=== PATIENT | female | born 1960 | race Caucasian/White ===

== ENCOUNTER 2024-04-22 21:05 | Emergency (ER) | payer MEDICAID ==
--- NOTE | 2024-04-22 21:52 | ED ---
Abdominal Pain HPI - General Chief Complaint: Abdominal Pain Stated Complaint: Flank Pain, Abdominal Pain Time Seen by Provider: 04/22/24 21:20 Source: patient, family, RN notes reviewed Limitations: no limitations - History of Present Illness Initial Comments: This is a 63-year-old female presented to the emergency department chief complaint of right-sided flank pain that started on 04/20/2024. Patient states that the pain started while she was sitting in her chair at home. Patient denies any known traumas or injuries to her back. Patient was evaluated at outside emergency department yesterday where she underwent CT imaging and laboratory studies and was discharged home with muscle relaxer. Patient states that flank pain has persisted. She denies hematuria, dysuria, increase in urinary frequency or urgency, radiation of pain. She denies chest pain, shortness of breath, difficulty breathing. She denies bowel changes such as hematochezia or dark or tarry stools. Patient states that she has a history of kidney stones over 20 years ago. - Related Data Allergies Allergy/AdvReac Type Severity Reaction Status Date / Time irinotecan [From Camptosar] AdvReac Unknown Verified 04/22/24 21:13 latex AdvReac Rash/Hives Verified 04/22/24 21:13 metronidazole [From Flagyl] AdvReac Rash/Hives Verified 04/22/24 21:13 Review of Systems ROS Statement: Those systems with pertinent positive or pertinent negative responses have been documented in the HPI. ROS Other: All systems not noted in ROS Statement are negative. Past Medical History Past Medical History: Thyroid Disorder Additional Past Medical History / Comment(s): [place] dx, PVC's, UTI, Gallstones with sludge, cyst on kidney, kidney stones. History of Any Multi-Drug Resistant Organisms: C-DIFF Past Surgical History: Section Additional Past Surgical History / Comment(s): uterine surg r/t post menopause bleeding , loop moniot 2-2023, Past Psychological History: PTSD Smoking Status: Never smoker Past Alcohol Use History: Occasional Past Drug Use History: None Reported General Exam Limitations: no limitations General appearance: alert, in no apparent distress Eye exam: Present: normal appearance, PERRL, EOMI. Absent: scleral icterus, conjunctival injection, periorbital swelling Neck exam: Present: normal inspection. Absent: tenderness, meningismus, lymphadenopathy Respiratory exam: Present: normal lung sounds bilaterally. Absent: respiratory distress, wheezes, rales, rhonchi, stridor Cardiovascular Exam: Present: regular rate, normal rhythm, normal heart sounds. Absent: systolic murmur, diastolic murmur, rubs, gallop, clicks GI/Abdominal exam: Present: soft, normal bowel sounds. Absent: distended, tenderness, guarding, rebound, rigid Extremities exam: Present: normal inspection, full ROM, normal capillary refill. Absent: tenderness, pedal edema, joint swelling, calf tenderness Back exam: Present: normal inspection, CVA tenderness (R). Absent: CVA tenderness (L) Skin exam: Present: warm, dry, intact, normal color. Absent: rash Course Vital Signs 04/22/24 04/23/24 21:14 01:31 EDT Temperature 97.5 F L 97.9 F Pulse Rate 74 64 Respiratory 23 17 Rate Blood Pressure 131/82 92/57 O2 Sat by Pulse 96 95 Oximetry Medical Decision Making - Medical Decision Making Was pt. sent in by a medical professional or institution (Dr. PA, CARE GIVER, urgent care, hospital, or fpc...) When possible be specific @ -No Did you speak to anyone other than the patient for history (EMS, parent, family, police, friend...)? What history was obtained from this source @ -No Did you review nursing and triage notes (agree or disagree)? Why? @ -I reviewed and agree with nursing and triage notes Were old charts reviewed (outside hosp., previous admission, EMS record, old EKG, old radiological studies, urgent care reports/EKG's, fpc records)? Report findings @ -No old charts were reviewed Differential Diagnosis (chest pain, altered mental status, abdominal pain women, abdominal pain men, vaginal bleeding, weakness, fever, dyspnea, syncope, headache, dizziness, GI bleed, back pain, seizure, CVA, palpatations, mental health, musculoskeletal)? @ -Differential Back Pain: Strain, zoster, cauda equina syndrome, epidural abscess, vertebral osteomyelitis, discitis, fracture, subluxation, disc herniation, DJD, spinal stenosis, dissection, AAA, pancreatitis, peptic ulcer disease, pyelonephritis, kidney stone, this is not meant to be an all-inclusive list. EKG interpreted by me (3pts min.). @ -none X-rays interpreted by me (1pt min.). @ -None done CT interpreted by me (1pt min.). @ -CT of the abdomen and pelvis with IV contrast reveals symmetric excretion bilaterally without hydronephrosis gallstones without evidence for acute cholecystitis no bowel obstruction moderate constipation U/S interpreted by me (1pt. min.). @ -Ultrasound of the gallbladder reveals gallstones with no evidence for acute cholecystitis What testing was considered but not performed or refused? (CT, X-rays, U/S, labs)? Why? @ -None What meds were considered but not given or refused? Why? @ -None Did you discuss the management of the patient with other professionals (professionals i.e. , PA, CARE GIVER, lab, RT, psych nurse, renal social worker, offbearer sewer pipe, teacher, small business banking officer, case loader operator)? Give summary @ -No Was smoking cessation discussed for >3mins.? @ -No Was critical care preformed (if so, how long)? @ -No Were there social determinants of health that impacted care today? How? (Homelessness, low income, unemployed, alcoholism, drug addiction, transportation, low edu. Level, literacy, decrease access to med. care, senior care, rehab)? @ -No Was there de-escalation of care discussed even if they declined (Discuss DNR or withdrawal of care, Hospice)? DNR status @ -No What co-morbidities impacted this encounter? (DM, HTN, Smoking, COPD, CAD, Cancer, CVA, ARF, Chemo, Hep., AIDS, mental health diagnosis, sleep apnea, morbid obesity)? @ -None Was patient admitted / discharged? Hospital course, mention meds given and route, prescriptions, significant lab abnormalities, going to OR and other pertinent info. @ -Discharge. 63-year-old female with right sided flank pain. On my initial evaluation of the patient is noted to be laying on her left side with a ice pack over her right flank. Her vital signs are stable. Patient states that pain is not exacerbated on palpation however is worse with movement. Will be provided with dose of Toradol and will be evaluated for flank pain including laboratory studies and CT imaging. She is agree with this plan. Laboratory studies including CBC, CMP, pancreatic enzymes, and urinalysis within normal limits. CT scan unremarkable for acute process discerning right flank pain. Discussed with patient at bedside offer ultrasound of the gallbladder as pain may be referred from gallbladder. Patient did agree with undergoing ultrasound. Ultrasound negative for acute process, remarkable for gallstones. Patient is provided a prescription for Toradol to take as needed outpatient. Additionally, she is provided with a referral to general surgeon for further evaluation of flank pain that may be referred secondary to gallbladder/gallstones. All questions have been answered at bedside and strict return parameters have been discussed with the patient she is verbalized understanding. Case discussed with my attending Dr. Walden Undiagnosed new problem with uncertain prognosis? @ -No Drug Therapy requiring intensive monitoring for toxicity (Heparin, Nitro, Insulin, Cardizem)? @ -No Were any procedures done? @ -No Diagnosis/symptom? @ -Flank pain Acute, or Chronic, or Acute on Chronic? @ -acute Uncomplicated (without systemic symptoms) or Complicated (systemic symptoms)? @ -Uncomplicated Side effects of treatment? @ -No Exacerbation, Progression, or Severe Exacerbation? @ -No Poses a threat to life or bodily function? How? (Chest pain, USA, CA, pneumonia, PE, COPD, DKA, ARF, appy, cholecystitis, CVA, Diverticulitis, Homicidal, Suicidal, threat to staff... and all critical care pts) @ -No - Lab Data Result diagrams: 04/22/24 22:09 04/22/24 22:09 Lab Results 04/22/24 04/22/24 04/22/24 Range/Units 22:04 22:09 22:09 WBC 8.8 (3.8-10.6) k/uL RBC 4.35 (3.80-5.40) m/uL Hgb 13.3 (11.4-16.0) gm/dL Hct 40.8 (34.0-46.0) % MCV 93.8 (80.0-100.0) fL MCH 30.6 (25.0-35.0) pg MCHC 32.6 (31.0-37.0) g/dL RDW 12.1 (11.5-15.5) % Plt Count 244 (150-450) k/uL MPV 6.4 Neutrophils % 61 % Lymphocytes % 30 % Monocytes % 6 % Eosinophils % 1 % Basophils % 0 % Neutrophils # 5.3 (1.3-7.7) k/uL Lymphocytes # 2.6 (1.0-4.8) k/uL Monocytes # 0.5 (0-1.0) k/uL Eosinophils # 0.1 (0-0.7) k/uL Basophils # 0.0 (0-0.2) k/uL Sodium 139 (137-145) mmol/L Potassium 4.3 (3.5-5.1) mmol/L Chloride 104 (98-107) mmol/L Carbon Dioxide 29 (22-30) mmol/L Anion Gap 6 mmol/L BUN 9 (7-17) mg/dL Creatinine 0.49 L (0.52-1.04) mg/dL Est GFR (CKD-EPI)AfAm >90 (>60 ml/min/1.73 sqM) Est GFR (CKD-EPI)NonAf >90 (>60 ml/min/1.73 sqM) Glucose 98 (74-99) mg/dL Calcium 9.2 (8.4-10.2) mg/dL Total Bilirubin 1.1 (0.2-1.3) mg/dL AST 29 (14-36) U/L ALT 21 (4-34) U/L Alkaline Phosphatase 80 (38-126) U/L Total Protein 7.1 (6.3-8.2) g/dL Albumin 4.5 (3.5-5.0) g/dL Amylase 61 (30-110) U/L Lipase 40 (23-300) U/L Urine Color Colorless Urine Appearance Clear (Clear) Urine pH 5.5 (5.0-8.0) Ur Specific [place] 1.002 (1.001-1.035) Urine Protein Negative (Negative) Urine Glucose (UA) Negative (Negative) Urine Ketones Negative (Negative) Urine Blood Trace H (Negative) Urine Nitrite Negative (Negative) Urine Bilirubin Negative (Negative) Urine Urobilinogen <2.0 (<2.0) mg/dL Ur Leukocyte Esterase Negative (Negative) Urine RBC <1 (0-5) /hpf Ur Squamous Epith Cells <1 (0-4) /hpf Disposition Clinical Impression: Flank pain, Biliary colic Disposition: HOME SELF-CARE Condition: Good Instructions (If sedation given, give patient instructions): Biliary Colic (ED) Additional Instructions: Please return to the Emergency Department if symptoms worsen or any other km rns. Recommend that you follow-up with the provided general surgeon for further evaluation. Continue to take medication as needed for pain. Is patient prescribed a controlled substance at d/c from ED?: No Referrals: Nonstaff,Physician [Primary Care Provider] - 1-2 days Ramiro Galaviz DO [Medical Doctor] - 1-2 days Time of Disposition: 01:07
[2024-04-22] MEDS: KETOROLAC 15 MG/ML 1 ML VIAL IVP STA (22:05)
[2024-04-22 22:22] LABS: Basophils % (A) 0 %; Eosinophils # (A) 0.1 k/uL (0-0.7); Eosinophils % (A) 1 %; HCT 40.8 % (34.0-46.0); HGB 13.3 gm/dL (11.4-16.0); Lymphocytes # (A) 2.6 k/uL (1.0-4.8); Lymphocytes % (A) 30 %; MCH 30.6 pg (25.0-35.0); MCHC 32.6 g/dL (31.0-37.0); MCV 93.8 fL (80.0-100.0); Mean Platelet Volume 6.4; Monocytes # (A) 0.5 k/uL (0-1.0); Monocytes % (A) 6 %; Neutrophils # (A) 5.3 k/uL (1.3-7.7); Neutrophils % (A) 61 %; Platelet Count 244 k/uL (150-450); RBC 4.35 m/uL (3.80-5.40); RDW 12.1 % (11.5-15.5); WBC 8.8 k/uL (3.8-10.6)
[2024-04-22 22:30] LABS: ALT 21 U/L (4-34); AST 29 U/L (14-36); African American GFR (CKD) >90 (>60 ml/min/1.73 sqM); Albumin 4.5 g/dL (3.5-5.0); Alkaline Phosphatase 80 U/L (38-126); Amylase 61 U/L (30-110); Anion Gap 6 mmol/L; Blood Urea Nitrogen 9 mg/dL (7-17); Calcium 9.2 mg/dL (8.4-10.2); Carbon Dioxide 29 mmol/L (22-30); Chloride 104 mmol/L (98-107); Glucose 98 mg/dL (74-99); Lipase 40 U/L (23-300); Non-African American GFR(CKD) >90 (>60 ml/min/1.73 sqM); Potassium 4.3 mmol/L (3.5-5.1); Sodium 139 mmol/L (137-145); Total Bilirubin 1.1 mg/dL (0.2-1.3); Total Protein 7.1 g/dL (6.3-8.2)
[2024-04-22 22:36] LABS: Appearance,Urine Clear (Clear); Bilirubin,Urine Negative (Negative); Blood,Urine Trace (Negative); Color,Urine Colorless; Glucose,Urine (UA) Negative (Negative); Ketones,Urine Negative (Negative); Leukocyte Esterase,Urine Negative (Negative); Nitrite,Urine Negative (Negative); PH, Urine 5.5 (5.0-8.0); Protein,Urine Negative (Negative); RBC,Urine <1 /hpf (0-5); Specific Gravity,Urine 1.002 (1.001-1.035); Squamous Epithelial Cell,Urine <1 /hpf (0-4); Urobilinogen,Urine <2.0 mg/dL (<2.0)
--- NOTE | 2024-04-22 22:56 | CT ---
EXAMINATION TYPE: CT abdomen pelvis w con DATE OF EXAM: 04/22/2024 HISTORY: pt is reporting extreme right flank pain that started on 04-20. pt reports the pain is worse when she tried to take a deep respiration. describes the pain as sharp and stabbing. pt reports she was at [facility] yesterday r/t this pain and was sent home CT DLP: 726.4mGycm Automated Exposure Control for Dose Reduction was Utilized. CONTRAST: CT scan of the abdomen and pelvis is performed with IV Contrast, patient injected with 100 mL of Isov ue 300. COMPARISON: None. FINDINGS: LUNG BASES: Mild bibasilar linear scarring and/or atelectasis. LIVER/GB: Multiple intraluminal gallstones. Gallbladder does not show surrounding ill-defined fluid o r fat stranding. No biliary dilatation. PANCREAS: No significant abnormality is seen. SPLEEN: No significant abnormality is seen. ADRENALS: No significant abnormality is seen. KIDNEYS: There is posterior 2.8 cm simple appearing thin-walled cyst in the left kidney axial image 2 8. There is symmetric cortical medullary uptake and excretion without hydronephrosis seen bilaterally . Anterior positioning of right kidney is noted. BOWEL: Moderate fecal prominence in the right and transverse colon. No abnormal small or large bowel dilatation. There is appendicolith on image 41. Appendix however is nondilated and does not show surr ounding inflammatory change. UTERUS/ADNEXA: Small anteverted uterus correlates with patient's postmenopausal age. LYMPH NODES: No greater than 1cm abdominal or pelvic lymph nodes are appreciated. OSSEOUS STRUCTURES: Slight levoconvex scoliosis is present. Around the lesion L4 vertebra measurement s of the noted uncertain etiology. Similar lesion noted in the posterior aspect of the T12 vertebral sagittal image 72. Mild to moderate disc space narrowing L4-L5 and L5-S1 levels OTHER: There is a metallic density probable recording device in the anterior subcutaneous wall left u pper quadrant noted. IMPRESSION: Symmetric excretion bilaterally without hydronephrosis. There are gallstones without CT e vidence for acute cholecystitis. There is no bowel obstruction. There is moderate proximal colonic fe hakan stasis seen for constipation noted. [facility], , 04/22/2024 10:53 PM
--- NOTE | 2024-04-23 00:59 | US ---
EXAMINATION TYPE: US gallbladder DATE OF EXAM: 04/23/2024 COMPARISON: CT abdomen and pelvis 1 day earlier CLINICAL INDICATION: Female, 63 years old with history of right flank, r/o referred pain from gallbla dder; Pain RUQ TECHNIQUE: Grayscale and color Doppler imaging of the right upper quadrant was performed. FINDINGS: EXAM MEASUREMENTS: Liver Length: 15.8 cm Gallbladder Wall: .3 cm CBD: .6 cm Right Kidney: 11.6 x 4.7 x 3.1 cm TOY PACKER NOTES: Pancreas: Tail obscured by overlying bowel gas Liver: wnl Gallbladder: Multiple stones visualized Evidence for sonographic Wolf's sign: no CBD: upper limits Right Kidney: Limited due to bowel gas. IMPRESSION: Gallstones redemonstrated. No ultrasound evidence for acute cholecystitis. [facility], , 04/23/2024 12:56 AM
[2024-04-23 01:35] VITALS: BP 92/57; PULSE 64; RESP 17; TEMP 97.9
== END 2024-04-23 01:42 | disposition home or self-care (01) ==
LOC: EC 21:05
DX: K80.50 Calculus of bile duct without cholangitis or cholecystitis without obstruction (principal); Z88.1 Allergy status to other antibiotic agents; Z88.8 Allergy status to other drugs, medicaments and biological substances; Z91.040 Latex allergy status
CPT/HCPCS: 36415; 80053; 82150; 83690; 85025; 81001; 76705; 74177; 99284; 96374; J1885; Q9967

== ENCOUNTER → 2024-06-29 | Outpatient (CLI) | payer OTHER ==
[2024-06-29 19:32] LABS: Basophils # (A) 0.04 X 10*3/uL (0.00-0.10); Basophils % (A) 0.5 %; Eosinophils % (A) 1.3 %; HCT 39.1 % (37.2-46.3); HGB 12.5 g/dL (12.0-15.0); Lymphocytes # (A) 2.98 X 10*3/uL (0.90-5.00); Lymphocytes % (A) 38.2 %; MCH 29.8 pg (27.0-32.0); MCV 93.3 FL (80.0-97.0); Monocytes # (A) 0.61 X 10*3/uL (0.20-1.00); Monocytes % (A) 7.8 %; NRBC Per 100 WBC 0 X 10*3/uL (0.00-0.01); Neutrophils # (A) 4.05 X 10*3/uL (1.80-7.70); Neutrophils % (A) 51.9 %; Platelet Count 298 X 10*3/uL (140-440); RBC 4.19 X 10*6/uL (4.10-5.20); RDW 12.6 % (11.5-14.5)
== END | disposition home or self-care (01) ==
LOC: LABPAT 15:28
PROVIDERS: ATTEND Surgery
DX: Z01.818 Encounter for other preprocedural examination (principal); K80.00 Calculus of gallbladder with acute cholecystitis without obstruction
CPT/HCPCS: 85025; 86850; 86900; 86901

== ENCOUNTER 2024-07-03 06:07 | Day surgery (SDC) | payer OTHER ==
[2024-06-29 10:11] VITALS: BMI 24.0
[~2024-07-03 06:07] MED LIST: ACETAMINOPHEN TAB 500 MG TAB PO PRN
[2024-07-03] MEDS ORDERED: LIDOCAINE 1% (10MG/ML) FOR IV START INTRADERMA PRN (06:35)
[2024-07-03] MEDS ORDERED: droPERidol 5 MG/2 ML VIAL IVP ONE (06:35)
[2024-07-03] MEDS: LACTATED RINGERS 1,000 ML IV ONE (06:46)
[2024-07-03] MEDS: ONDANSETRON 4 MG/2 ML VIAL IVP ONE (07:11)
[2024-07-03] MEDS: DEXAMETHASONE SOD PHOSPHATE 4 MG/ML 1 ML VIAL IV ONE (07:12)
[2024-07-03] MEDS: SCOPOLAMINE 1 MG/72 HR PATCH TRANSDERM ONE (07:12)
[2024-07-03] MEDS: HEPARIN SODIUM,PORCINE 5,000 UNIT/ML 1 ML VIAL SQ PRN (07:12)
[2024-07-03] MEDS: LACTATED RINGERS 1,000 ML IV SCH (07:12)
[2024-07-03] MEDS ORDERED: MIDAZOLAM 2 MG/2 ML VIAL ONE (07:31)
[2024-07-03] MEDS ORDERED: PROPOFOL 10 MG/ML 20 ML VIAL IV ONE (07:31)
[2024-07-03] MEDS ORDERED: fentaNYL (PF) 50 MCG/ML 2 ML AMP ONE (07:31)
[2024-07-03] MEDS ORDERED: NEOSTIGMINE 1 MG/ML 10 ML VIAL ONE (07:31)
[2024-07-03] MEDS ORDERED: LIDOCAINE 1% INJ 10MG/ML (20 ML MDV) ONE (07:31)
[2024-07-03] MEDS ORDERED: ROCURONIUM 10 MG/ML (5 ML VIAL) IV ONE (07:31)
[2024-07-03] MEDS ORDERED: SUCCINYLCHOLINE CHLORIDE 200 MG/10 ML VIAL IV ONE (07:31)
[2024-07-03] MEDS ORDERED: GLYCOPYRROLATE 0.2 MG/ML 2 ML VIAL ONE (07:31)
[2024-07-03] MEDS: LIDOCAINE 1%-EPI 1:100,000 20 ML VIAL SQ ONE (07:59)
[2024-07-03] MEDS: IV FLUID CONTINUATION 1,000 ML IV ONE ×2 (08:28→09:10)
[2024-07-03 08:34] VITALS: TEMP 97.2
--- NOTE | 2024-07-03 08:35 | P.OP ---
Date of Procedure: 07/03/24 Preoperative Diagnosis: Cholecystitis Cholelithiasis Postoperative Diagnosis: Cholecystitis Cholelithiasis Procedure(s) Performed: Laparoscopic cholecystectomy Anesthesia: NIYAH Surgeon: Jermain Ferrer Estimated Blood Loss (ml): 5 Pathology: other (Gallbladder) Condition: stable Disposition: PACU Description of Procedure: The patient was placed on the operating table. The patient received a general endotracheal tube anesthesia. The patients abdomen was prepped and draped in the usual sterile fashion. Through an infraumbilical stab incision, the fascia of the anterior abdominal wall was grasped with a pair of Kochers and then the Veress needle was placed in the peritoneal cavity. Position of the Veress needle was confirmed with positive drop test. The abdomen was then insufflated. After adequate insufflation, the 10 mm trocar was placed in the peritoneal cavity. Following this the laparoscope was placed in the peritoneal cavity. The patient was placed in the head-up, right side up position and then a 5 mm trocar was placed in the right lateral and right subcostal position under direct visualization. A 8 mm trocar was placed in the epigastric position. The gallbladder was grasped in the fundus and infundibulum. Traction on the gallbladder was placed in the lateral and the cephalad positions. The triangle of Calot was visualized.. The cystic duct was bluntly dissected until the union of the cystic duct and common bile duct was seen. A critical view of safety was achieved. The cystic duct was then divided and sealed with the Harmonic scissors. A PDS Endoloop was then placed throughout the cystic duct stump. The cystic artery divided and sealed with the Harmonic scissors. The gallbladder was then removed from the liver bed using Harmonic scissors. The gallbladder was then extracted through the epigastric port site. Operative field was checked for any bleeding spots and Harmonic scissors was used to coagulate the liver bed. The abdomen was irrigated. The trocars were removed. The skin was closed using interrupted 3-0 Vicryl suture. Dermabond dressing were applied. The patient tolerated the procedure well.
[2024-07-03] MEDS: HYDROmorphone 0.5 MG/0.5 ML SYRINGE IVP PRN (09:01)
[2024-07-03 12:15] VITALS: BP 111/69; PULSE 71; RESP 18
== END 2024-07-03 13:45 | disposition home or self-care (01) ==
LOC: OR 06:07
PROVIDERS: ATTEND Surgery
DX: K80.12 Calculus of gallbladder with acute and chronic cholecystitis without obstruction (principal); I49.3 Ventricular premature depolarization; E07.9 Disorder of thyroid, unspecified; F41.9 Anxiety disorder, unspecified; F43.10 Post-traumatic stress disorder, unspecified; K21.9 Gastro-esophageal reflux disease without esophagitis; Z91.040 Latex allergy status; Z91.013 Allergy to seafood; Z88.8 Allergy status to other drugs, medicaments and biological substances; Z79.899 Other long term (current) drug therapy; Z88.1 Allergy status to other antibiotic agents
CPT/HCPCS: 47562; J2250; J0330; J1644; J1100; J2710; J0690; J2405; J2003; J3010; J2704; J1171; J1596; 88304